=== PATIENT | female | born 1990 | race Caucasian/White ===

== ENCOUNTER 2018-12-17 15:44 | Emergency (ER) | payer OTHER, SELFPAY ==
[2018-12-17 16:06] VITALS: BP 115/73; PULSE 82; RESP 14; TEMP 36.8; O2SAT 97
--- NOTE | 2018-12-17 16:14 | DI.RAD.S_ITS ---
PROCEDURE: XR CHEST 2V INDICATIONS: atypical pneumonia treatment, new pain rt chest / epigastric TECHNIQUE: 2 views of the chest were acquired. COMPARISON: None. FINDINGS: Surgical changes and devices: Cholecystectomy clips are seen. Lungs and pleura: No focal infiltrates are seen. Mild interstitial prominence is seen, particularly involving the perihilar regions. No pneumothorax or pleural effusions are seen. Mediastinum: Mediastinal contours are normal. Heart size is normal. Bones and chest wall: No suspicious bony abnormalities. Soft tissues appear unremarkable. IMPRESSION: Interstitial prominence is seen, which is supportive of the diagnosis of atypical pneumonia. No focal infiltrates are seen. Dictated by: Montrell Myrick M.D. on 12/17/2018 at 15:26 Approved by: Montrell Myrick M.D. on 12/17/2018 at 15:26
[2018-12-17 19:41] VITALS: BP 118/75; PULSE 76; RESP 16; O2SAT 100
--- NOTE | 2018-12-17 20:46 | DI.CT.S_ITS ---
PROCEDURE: CT CHEST W CON INDICATIONS: shortness of breath, non improving pneumoni TECHNIQUE: After the administration of intravenous contrast, 5 mm thick sections acquired from the pulmonary apices to the posterior costophrenic angles. 7 mm thick coronal and sagittal MIP reformats were acquired. For radiation dose reduction, the following was used: automated exposure control, adjustment of mA and/or kV according to patient size. COMPARISON: None. FINDINGS: Image quality: Excellent. Lungs and pleura: No acute air space opacities. No pleural effusions or pneumothorax. Central and peripheral airways are patent and normal in caliber. Mediastinum: Heart size is normal. No pericardial effusion. No mediastinal or hilar adenopathy by size criteria. Thoracic aorta and central pulmonary arteries are normal in size. Esophagus is normal in caliber. No hiatal hernia. Bones and chest wall: No suspicious bony lesions. No vertebral body compression fractures. No axillary or supraclavicular adenopathy by size criteria. Thyroid gland appears normal where well visualized. Abdomen: Visualized upper abdominal solid organs appear normal. Upper abdominal bowel loops are normal in caliber. IMPRESSION: No pneumonia found. Source of shortness of breath is not seen. Note: These findings are concordant with the preliminary interpretation. Dictated by: Jeronimo Walker M.D. on 12/18/2018 at 8:28 Approved by: Jeronimo Walker M.D. on 12/18/2018 at 8:29
[2018-12-17 21:02] VITALS: BP 140/94
[2018-12-17 21:15] VITALS: O2SAT 100
[2018-12-17] MEDS: ALBUTEROL 2.5 MG/3 ML NEB (ADULT) INH (21:15)
[2018-12-17 21:48] LABS: Add Manual Diff / Slide Review NO; Basophils Absolute Auto 100 /uL (0-100); Basophils Percent Auto 0.7 % (0-2); Eosinophils Absolute Auto 100 /uL (0-450); Eosinophils Percent Auto 0.6 % (2-4); Hematocrit 40.7 % (36-46); Hemoglobin 14.2 g/dL (12.0-16.0); Lymphocytes Absolute Auto 5400 /uL (1100-4500); Lymphocytes Percent Auto 32.9 % (25-40); Mean Corpuscular HGB Conc 34.9 % (30-36); Mean Corpuscular Hemoglobin 29.8 PG (26-34); Mean Corpuscular Volume 85.3 fL (80-100); Monocytes Absolute Auto 800 /uL (0-900); Monocytes Percent Auto 5.2 % (3-14); Neutrophils Absolute Auto 10000 /uL (1500-7000); Neutrophils Percent Auto 60.6 % (50-75); Platelet Count 311 X10^3/uL (150-400); Red Blood Cell Count 4.77 X10^6/uL (4.0-5.2); Red Cell Distribution Width 13.8 % (11.6-14.8); White Blood Cell Count 16.4 X10^3/uL (4.5-11.0)
[2018-12-17 21:51] LABS: Bacteria Urine None Seen; RBC Urine None Seen (0-5/HPF)
--- NOTE | 2018-12-17 22:15 | ED.CHESTPAIN ---
HPI - Chest Pain <ROBERT Nguyen-BC - Last Filed: 12/17/18 22:59> General Chief Complaint: Chest Pain Stated Complaint: Chest pain Time Seen by Provider: 12/17/18 19:54 Source: patient Mode of arrival: ambulatory Limitations: no limitations History of Present Illness HPI narrative: The patient is a 28-year-old female former smoker with history of migraines who presents with a chief complaint of lung pain. She states her lungs hurt and feel heavy. 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 She states she has been treated with azithromycin. She is currently being treated with Levaquin. She states that it hurts to take a deep breath and that she has a productive cough. She is concerned that the pneumonia is worse or fungal given her exposure. She is using inhalers and was on a course of prednisone. She has an appointment scheduled with a cheese pancake roller at the end of the month. She denies any fevers nausea vomiting or diarrhea. Patient states she is ?tired of feeling sick. Related Data Home Medications Medication Instructions Recorded Confirmed fluticasone propion-salmeterol 2 puff INHALATION BID PRN 12/17/18 12/17/18 [Advair HFA] levofloxacin 750 mg PO DAILY 12/17/18 12/17/18 sumatriptan [Imitrex] 1 spray INTRANASAL BID PRN 12/17/18 12/17/18 topiramate 50 mg PO BEDTIME 12/17/18 12/17/18 Previous Rx's Medication Instructions Recorded doxycycline hyclate 100 mg PO BID #20 cap 12/17/18 Allergies Allergy/AdvReac Type Severity Reaction Status Date / Time naproxen [From Naprosyn] Allergy Severe Anaphylaxis Verified 12/17/18 16:11 Sulfa (Sulfonamide Allergy Severe Anaphylaxis Verified 12/17/18 16:11 Antibiotics) Penicillins Allergy Intermediate Hives Verified 12/17/18 16:10 Review of Systems <SOPHIE Nguyen - Last Filed: 12/17/18 22:59> Review of Systems GENERAL: Denies chills, fatigue, malaise, fever, sweats. HEENT: Denies sinus pain, ear pain, sore throat, difficulty swallowing, dizziness. RESPIRATORY: See HPI CARDIOVASCULAR: Denies chest pain, palpitations, orthopnea, edema, GASTROINTESTINAL: Denies nausea, vomiting, abdominal pain, diarrhea, constipation, melena. : Denies dysuria, frequency, incontinence, hematuria, urinary retention. MUSCULOSKELETAL: denies weakness, joint pain, or bony pain SKIN: Denies rash, skin lesions, or other NEUROLOGIC: Denies weakness, headache, numbness, change in speech, confusion, seizures, incoordination. PSYCHIATRIC: No concerning psychosocial issues. 12 point review of systems is negative except for those stated above PFSH <SOPHIE Nguyen - Last Filed: 12/17/18 22:59> Social History Smoking Status: Former smoker Social History Smoking Status: Former smoker Exam <SOPHIE Nguyen - Last Filed: 12/17/18 22:59> Narrative Exam Narrative: GENERAL: This is a well-nourished, well-developed patient, in no acute distress HEAD: Atraumatic. Normocephalic. No temporal or scalp tenderness. EYES: Pupils equal round and reactive. Extraocular motions intact. No scleral icterus. No injection or drainage. ENT: Nose without bleeding, purulent drainage or septal hematoma. Throat without erythema, tonsillar hypertrophy or exudate. Uvula midline. Airway patent. NECK: Trachea midline. No JVD or lymphadenopathy. Supple, nontender, no meningeal signs. CARDIOVASCULAR: Regular rate and rhythm without murmurs, gallops, or rubs. RESPIRATORY: Clear to auscultation. Breath sounds equal bilaterally. No wheezes, rales, or rhonchi. Dry cough noted in the emergency department. No accessory muscle use. GASTROINTESTINAL: Abdomen soft, non-tender, nondistended. No hepato-splenomegaly, or palpable masses. No guarding. EXTREMITIES: No clubbing, cyanosis, or edema. No joint tenderness, effusion, or edema noted. BACK: Nontender without deformity or crepitance. No flank tenderness. NEURO: AOx3. SKIN: No rash or erythema. Initial Vital Signs Initial Vital Signs: Vital Signs Temperature 98.2 F 12/17/18 16:06 Pulse Rate 82 12/17/18 16:06 Respiratory Rate 14 12/17/18 16:06 Blood Pressure 115/73 12/17/18 16:06 Pulse Oximetry 97 12/17/18 16:06 <Salvatore Ruiz MD - Last Filed: 12/17/18 23:46> Initial Vital Signs Initial Vital Signs: Vital Signs Temperature 98.2 F 12/17/18 16:06 Pulse Rate 82 12/17/18 16:06 Respiratory Rate 14 12/17/18 16:06 Blood Pressure 115/73 12/17/18 16:06 Pulse Oximetry 97 12/17/18 16:06 Course <ROBERT Nguyen- - Last Filed: 12/17/18 22:59> Orders Ordered: ED Orders 12/17/18 16:14 Chest [XR chest 2V] Stat 12/17/18 20:01 RT Consult Eval and Treat Now 12/17/18 20:46 CT chest w con Stat 12/17/18 21:10 Sputum Culture Stat 12/17/18 21:30 Complete Blood Count AUTO DIFF Stat Comprehensive Metabolic Panel Stat 12/17/18 21:34 Urine Microscopic Stat Discontinued Medications Albuterol (Ventolin) 2.5 mg INH NOW ONE Stop: 12/17/18 21:15 Last Admin: 12/17/18 21:15 Dose: 2.5 mg Doxycycline Hyclate (Vibramycin) 100 mg PO NOW ONE Stop: 12/17/18 22:56 Last Admin: 12/17/18 22:58 Dose: 100 mg Vital Signs - 8 hr 12/17/18 16:06 12/17/18 19:41 12/17/18 21:02 Temperature 98.2 F Pulse Rate 82 76 Respiratory Rate 14 16 Blood Pressure 115/73 Blood Pressure [Left Wrist] 118/75 140/94 H Pulse Oximetry 97 100 12/17/18 21:15 12/17/18 23:01 Temperature Pulse Rate 71 Respiratory Rate 18 Blood Pressure Blood Pressure [Left Wrist] 140/83 Pulse Oximetry 100 99 <Salvatore Ruiz MD - Last Filed: 12/17/18 23:46> Orders Ordered: ED Orders 12/17/18 16:14 Chest [XR chest 2V] Stat 12/17/18 20:01 RT Consult Eval and Treat Now 12/17/18 20:46 CT chest w con Stat 12/17/18 21:10 Sputum Culture Stat 12/17/18 21:30 Complete Blood Count AUTO DIFF Stat Comprehensive Metabolic Panel Stat 12/17/18 21:34 Urine Microscopic Stat Discontinued Medications Albuterol (Ventolin) 2.5 mg INH NOW ONE Stop: 12/17/18 21:15 Last Admin: 12/17/18 21:15 Dose: 2.5 mg Doxycycline Hyclate (Vibramycin) 100 mg PO NOW ONE Stop: 12/17/18 22:56 Last Admin: 12/17/18 22:58 Dose: 100 mg Vital Signs - 8 hr 12/17/18 16:06 12/17/18 19:41 12/17/18 21:02 Temperature 98.2 F Pulse Rate 82 76 Respiratory Rate 14 16 Blood Pressure 115/73 Blood Pressure [Left Wrist] 118/75 140/94 H Pulse Oximetry 97 100 12/17/18 21:15 12/17/18 23:01 Temperature Pulse Rate 71 Respiratory Rate 18 Blood Pressure Blood Pressure [Left Wrist] 140/83 Pulse Oximetry 100 99 MDM - Chest Pain <ROBERT Nguyen- - Last Filed: 12/17/18 22:59> Lab Data Result diagrams: 12/17/18 21:30 12/17/18 21:30 Lab Results 12/17/18 12/17/18 12/17/18 Range/Units 21:30 21:30 21:34 WBC 16.4 H (4.5-11.0) X10^3/uL RBC 4.77 (4.0-5.2) X10^6/uL Hgb 14.2 (12.0-16.0) g/dL Hct 40.7 (36-46) % MCV 85.3 (80-100) fL MCH 29.8 (26-34) PG MCHC 34.9 (30-36) % RDW 13.8 (11.6-14.8) % Plt Count 311 (150-400) X10^3/uL Neut % (Auto) 60.6 (50-75) % Lymph % (Auto) 32.9 (25-40) % [place] % (Auto) 5.2 (3-14) % Eos % (Auto) 0.6 L (2-4) % Baso % (Auto) 0.7 (0-2) % Neut # (Auto) 67703 H (1186-7229) /uL Lymph # (Auto) 5400 H (2154-4725) /uL [place] # (Auto) 800 (0-900) /uL Eos # (Auto) 100 (0-450) /uL Baso # (Auto) 100 (0-100) /uL Sodium 139 (137-145) mmol/L Potassium 3.5 (3.4-5.1) mmol/L Chloride 105 (98-107) mmol/L Carbon Dioxide 22 (22-32) mmol/L BUN 14 (7-17) mg/dL Creatinine 0.80 (0.52-1.04) mg/dL Estimated GFR > 60.0 (>60) mL/min BUN/Creatinine Ratio 17.5 (6-22) Glucose 93 (70-100) mg/dL Calcium 9.4 (8.4-10.2) mg/dL Total Bilirubin 0.9 (0.2-1.3) mg/dL AST 23 (14-36) IU/L ALT 32 (9-52) IU/L Alkaline Phosphatase 79 (38-126) U/L Total Protein 8.0 (6.3-8.2) g/dL Albumin 4.8 (3.5-5.0) g/dL Globulin 3.2 (1.7-4.1) g/dL Albumin/Globulin Ratio 1.5 (1.0-2.8) Urine RBC None seen (0-5/HPF) Urine WBC 5-10/hpf H (0-5/HPF) Ur Squamous Epith Cells 5-10 /hpf H (0-5/HPF) Amorphous Sediment 2+ Urine Bacteria None seen (None) Ur Culture Indicated? Cult not indicated Point of Care Testing Test Results Negative Urine Dip Bedside Urine Glucose Negative Bedside Urine Bilirubin - Negative Bedside Urine Ketone - Negative Urine Specific [place] 1.030 Bedside Urine Occult Blood - Negative Bedside Urine pH 6.0 Bedside Urine Protein - Negative Bedside Urine Urobilinogen - Negative Bedside Urine Nitrite - Negative Bedside Urine Leukocytes ++ 125 Esterase Imaging Data Chest x-ray: Radiologist's impression: [address] [address] XRay Report Signed Patient: Mariann Carcamo [facility]#: [id number] : 1990Acct:[id number] Age/Sex: 28 / FDate of Service: 12/17/18 Loc: ED Accession Number: [id number] Procedure: XR chest 2V Ordering Provider: Carmen Ortiz D.O. PROCEDURE: XR CHEST 2V INDICATIONS: atypical pneumonia treatment, new pain rt chest / epigastric TECHNIQUE: 2 views of the chest were acquired. COMPARISON: None. FINDINGS: Surgical changes and devices: Cholecystectomy clips are seen. Lungs and pleura: No focal infiltrates are seen. Mild interstitial prominence is seen, particularly involving the perihilar regions. No pneumothorax or pleural effusions are seen. Mediastinum: Mediastinal contours are normal. Heart size is normal. Bones and chest wall: No suspicious bony abnormalities. Soft tissues appear unremarkable. IMPRESSION: Interstitial prominence is seen, which is supportive of the diagnosis of atypical pneumonia. No focal infiltrates are seen. Dictated by: Montrell Myrick M.D. on 12/17/2018 at 15:26 Approved by: Montrell Myrick M.D. on 12/17/2018 at 15:26 [facility] Narrative Medical decision making narrative: The patient is a 28-year-old female with history of recent pneumonia, having been treated with azithromycin and Levaquin. She presents with a chief complaint of worsening lung pain, and lack of improvement. She has been using albuterol as well as steroids at home. Her x-ray shows a possible atypical pneumonia. Thus given her exposure to a fungus or substance at work, I obtained a sputum culture as well as a chest CT. She was evaluated by respiratory therapist in the emergency department. She was signed out to Dr Ruiz at 23:[address] pending. <Salvatore Ruiz MD - Last Filed: 12/17/18 23:46> Lab Data Lab Results 12/17/18 12/17/18 12/17/18 Range/Units 21:30 21:30 21:34 WBC 16.4 H (4.5-11.0) X10^3/uL RBC 4.77 (4.0-5.2) X10^6/uL Hgb 14.2 (12.0-16.0) g/dL Hct 40.7 (36-46) % MCV 85.3 (80-100) fL MCH 29.8 (26-34) PG MCHC 34.9 (30-36) % RDW 13.8 (11.6-14.8) % Plt Count 311 (150-400) X10^3/uL Neut % (Auto) 60.6 (50-75) % Lymph % (Auto) 32.9 (25-40) % [place] % (Auto) 5.2 (3-14) % Eos % (Auto) 0.6 L (2-4) % Baso % (Auto) 0.7 (0-2) % Neut # (Auto) 73283 H (5174-2909) /uL Lymph # (Auto) 5400 H (6438-5672) /uL [place] # (Auto) 800 (0-900) /uL Eos # (Auto) 100 (0-450) /uL Baso # (Auto) 100 (0-100) /uL Sodium 139 (137-145) mmol/L Potassium 3.5 (3.4-5.1) mmol/L Chloride 105 (98-107) mmol/L Carbon Dioxide 22 (22-32) mmol/L BUN 14 (7-17) mg/dL Creatinine 0.80 (0.52-1.04) mg/dL Estimated GFR > 60.0 (>60) mL/min BUN/Creatinine Ratio 17.5 (6-22) Glucose 93 (70-100) mg/dL Calcium 9.4 (8.4-10.2) mg/dL Total Bilirubin 0.9 (0.2-1.3) mg/dL AST 23 (14-36) IU/L ALT 32 (9-52) IU/L Alkaline Phosphatase 79 (38-126) U/L Total Protein 8.0 (6.3-8.2) g/dL Albumin 4.8 (3.5-5.0) g/dL Globulin 3.2 (1.7-4.1) g/dL Albumin/Globulin Ratio 1.5 (1.0-2.8) Urine RBC None seen (0-5/HPF) Urine WBC 5-10/hpf H (0-5/HPF) Ur Squamous Epith Cells 5-10 /hpf H (0-5/HPF) Amorphous Sediment 2+ Urine Bacteria None seen (None) Ur Culture Indicated? Cult not indicated Point of Care Testing Test Results Negative Urine Dip Bedside Urine Glucose Negative Bedside Urine Bilirubin - Negative Bedside Urine Ketone - Negative Urine Specific [place] 1.030 Bedside Urine Occult Blood - Negative Bedside Urine pH 6.0 Bedside Urine Protein - Negative Bedside Urine Urobilinogen - Negative Bedside Urine Nitrite - Negative Bedside Urine Leukocytes ++ 125 Esterase Discharge Plan Departure Patient Disposition: Home Clinical Impression: Atypical pneumonia Instructions: DI for Atypical Pneumonia Activity Restrictions/Additional Instructions: The results of your sputum culture should be ready in 48-72 hours. This will establish what is in your lungs. In the meantime I will put him on doxycycline as this is more effective for atypical pneumonias. It can take 2-3 days to kick in. Please follow up with primary care provider for re-evaluation in a few days. Please follow up with pulmonology as discussed and previously arranged. Please come back to emergency department for any acute concerns such as shortness of breath or chest pain. Prescriptions: New doxycycline hyclate 100 mg capsule 100 mg PO BID Qty: 20 RF: 0 No Action topiramate 25 mg tablet 50 mg PO BEDTIME RF: 0 levofloxacin 750 mg tablet 750 mg PO DAILY RF: 0 sumatriptan [Imitrex] 20 mg/actuation spray,non-aerosol 1 spray Intranasal BID PRN (Reason: Migraine Headache) RF: 0 Advair HFA 45-21 mcg/actuation HFA aerosol inhaler 2 puff Inhalation BID PRN (Reason: Shortness Of Breath) RF: 0 Referrals: [facility] [Provider Group] <Salvatore Ruiz MD - Last Filed: 12/17/18 23:46> Cosign ED Attending Cosignature Attestation: The Nurse Practitioner who is caring for her and I had several discussions about her care and workup. I interviewed and examined the patient myself. I agree with the history. On my exam for heart is normal. Lungs are clear to auscultation all [place]. She has no peripheral edema,and a negative [place] test. She has no history of PE or DVT. She is having dyspnea, but no fever or chills. she is treated again as atypical pneumonia. Chest x-ray suggested atypical pneumonia. Noncontrast chest CT is normal. I have informed the patient of the normal chest CT. She has a cheese pancake roller appointment pending. I recommend she take the antibiotic as prescribed, and follow up with the cheese pancake roller as scheduled. I agree with the evaluation, assessment AND treatment plan as documented by IGLESIA Sarmiento.
--- NOTE | 2018-12-17 22:18 | ED_ITS ---
HPI - Chest Pain <ROBERT Nguyen-BC - Last Filed: 12/17/18 22:59> General Chief Complaint: Chest Pain Stated Complaint: Chest pain Time Seen by Provider: 12/17/18 19:54 Source: patient Mode of arrival: ambulatory Limitations: no limitations History of Present Illness HPI narrative: The patient is a 28-year-old female former smoker with history of migraines who presents with a chief complaint of lung pain. She states her lungs hurt and feel heavy. 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 She states she has been treated with azithromycin. She is currently being treated with Levaquin. She states that it hurts to take a deep breath and that she has a productive cough. She is concerned that the pneumonia is worse or fungal given her exposure. She is using inhalers and was on a course of prednisone. She has an appointment scheduled with a vice president supply chain at the end of the month. She denies any fevers nausea vomiting or diarrhea. Patient states she is ?tired of feeling sick. Related Data Home Medications Medication Instructions Recorded Confirmed fluticasone propion-salmeterol 2 puff INHALATION BID PRN 12/17/18 12/17/18 [Advair HFA] levofloxacin 750 mg PO DAILY 12/17/18 12/17/18 sumatriptan [Imitrex] 1 spray INTRANASAL BID PRN 12/17/18 12/17/18 topiramate 50 mg PO BEDTIME 12/17/18 12/17/18 Previous Rx's Medication Instructions Recorded doxycycline hyclate 100 mg PO BID #20 cap 12/17/18 Allergies Allergy/AdvReac Type Severity Reaction Status Date / Time naproxen [From Naprosyn] Allergy Severe Anaphylaxis Verified 12/17/18 16:11 Sulfa (Sulfonamide Allergy Severe Anaphylaxis Verified 12/17/18 16:11 Antibiotics) Penicillins Allergy Intermediate Hives Verified 12/17/18 16:10 Review of Systems <SOPHIE Nguyen - Last Filed: 12/17/18 22:59> Review of Systems GENERAL: Denies chills, fatigue, malaise, fever, sweats. HEENT: Denies sinus pain, ear pain, sore throat, difficulty swallowing, dizziness. RESPIRATORY: See HPI CARDIOVASCULAR: Denies chest pain, palpitations, orthopnea, edema, GASTROINTESTINAL: Denies nausea, vomiting, abdominal pain, diarrhea, constipation, melena. : Denies dysuria, frequency, incontinence, hematuria, urinary retention. MUSCULOSKELETAL: denies weakness, joint pain, or bony pain SKIN: Denies rash, skin lesions, or other NEUROLOGIC: Denies weakness, headache, numbness, change in speech, confusion, seizures, incoordination. PSYCHIATRIC: No concerning psychosocial issues. 12 point review of systems is negative except for those stated above PFSH <SOPHIE Nguyen - Last Filed: 12/17/18 22:59> Social History Smoking Status: Former smoker Social History Smoking Status: Former smoker Exam <SOPHIE Nguyen - Last Filed: 12/17/18 22:59> Narrative Exam Narrative: GENERAL: This is a well-nourished, well-developed patient, in no acute distress HEAD: Atraumatic. Normocephalic. No temporal or scalp tenderness. EYES: Pupils equal round and reactive. Extraocular motions intact. No scleral icterus. No injection or drainage. ENT: Nose without bleeding, purulent drainage or septal hematoma. Throat without erythema, tonsillar hypertrophy or exudate. Uvula midline. Airway patent. NECK: Trachea midline. No JVD or lymphadenopathy. Supple, nontender, no meningeal signs. CARDIOVASCULAR: Regular rate and rhythm without murmurs, gallops, or rubs. RESPIRATORY: Clear to auscultation. Breath sounds equal bilaterally. No wheezes, rales, or rhonchi. Dry cough noted in the emergency department. No accessory m uscle use. GASTROINTESTINAL: Abdomen soft, non-tender, nondistended. No hepato- splenomegaly, or palpable masses. No guarding. EXTREMITIES: No clubbing, cyanosis, or edema. No joint tenderness, effusion, or edema noted. BACK: Nontender without deformity or crepitance. No flank tenderness. NEURO: AOx3. SKIN: No rash or erythema. Initial Vital Signs Initial Vital Signs: Vital Signs Temperature 98.2 F 12/17/18 16:06 Pulse Rate 82 04/15/19 16:06 Respiratory Rate 14 12/17/18 16:06 Blood Pressure 115/73 12/17/18 16:06 Pulse Oximetry 97 12/17/18 16:06 <Salvatore Ruiz MD - Last Filed: 12/17/18 23:46> Initial Vital Signs Initial Vital Signs: Vital Signs Temperature 98.2 F 12/17/18 16:06 Pulse Rate 82 12/17/18 16:06 Respiratory Rate 14 12/17/18 16:06 Blood Pressure 115/73 12/17/18 16:06 Pulse Oximetry 97 12/17/18 16:06 Course <ROBERT Nguyen- - Last Filed: 12/17/18 22:59> Orders Ordered: ED Orders 12/17/18 16:14 Chest [XR chest 2V] Stat 12/17/18 20:01 RT Consult Eval and Treat Now 12/17/18 20:46 CT chest w con Stat 12/17/18 21:10 Sputum Culture Stat 12/17/18 21:30 Complete Blood Count AUTO DIFF Stat Comprehensive Metabolic Panel Stat 12/17/18 21:34 Urine Microscopic Stat Discontinued Medications Albuterol (Ventolin) 2.5 mg INH NOW ONE Stop: 12/17/18 21:15 Last Admin: 12/17/18 21:15 Dose: 2.5 mg Doxycycline Hyclate (Vibramycin) 100 mg PO NOW ONE Stop: 12/17/18 22:56 Last Admin: 12/17/18 22:58 Dose: 100 mg Vital Signs - 8 hr 12/17/18 16:06 12/17/18 19:41 12/17/18 21:02 Temperature 98.2 F Pulse Rate 82 76 Respiratory Rate 14 16 Blood Pressure 115/73 Blood Pressure [Left Wrist] 118/75 140/94 H Pulse Oximetry 97 100 12/17/18 21:15 12/17/18 23:01 Temperature Pulse Rate 71 Respiratory Rate 18 Blood Pressure Blood Pressure [Left Wrist] 140/83 Pulse Oximetry 100 99 <Salvatore Ruiz MD - Last Filed: 12/17/18 23:46> Orders Ordered: ED Orders 12/17/18 16:14 Chest [XR chest 2V] Stat 12/17/18 20:01 RT Consult Eval and Treat Now 12/17/18 20:46 CT chest w con Stat 12/17/18 21:10 Sputum Culture Stat 12/17/18 21:30 Complete Blood Count AUTO DIFF Stat Comprehensive Metabolic Panel Stat 12/17/18 21:34 Urine Microscopic Stat Discontinued Medications Albuterol (Ventolin) 2.5 mg INH NOW ONE Stop: 12/17/18 21:15 Last Admin: 12/17/18 21:15 Dose: 2.5 mg Doxycycline Hyclate (Vibramycin) 100 mg PO NOW ONE Stop: 12/17/18 22:56 Last Admin: 12/17/18 22:58 Dose: 100 mg Vital Signs - 8 hr 12/17/18 16:06 12/17/18 19:41 12/17/18 21:02 Temperature 98.2 F Pulse Rate 82 76 Respiratory Rate 14 16 Blood Pressure 115/73 Blood Pressure [Left Wrist] 118/75 140/94 H Pulse Oximetry 97 100 12/17/18 21:15 12/17/18 23:01 Temperature Pulse Rate 71 Respiratory Rate 18 Blood Pressure Blood Pressure [Left Wrist] 140/83 Pulse Oximetry 100 99 MDM - Chest Pain <ROBERT Nguyen- - Last Filed: 12/17/18 22:59> Lab Data Result diagrams: 12/17/18 21:30 12/17/18 21:30 Lab Results 12/17/18 12/17/18 12/17/18 Range/Units 21:30 21:30 21:34 WBC 16.4 H (4.5-11.0) X10^3/uL RBC 4.77 (4.0-5.2) X10^6/uL Hgb 14.2 (12.0-16.0) g/dL Hct 40.7 (36-46) % MCV 85.3 (80-100) fL MCH 29.8 (26-34) PG MCHC 34.9 (30-36) % RDW 13.8 (11.6-14.8) % Plt Count 311 (150-400) X10^3/uL Neut % (Auto) 60.6 (50-75) % Lymph % (Auto) 32.9 (25-40) % [place]chran % (Auto) 5.2 (3-14) % Eos % (Auto) 0.6 L (2-4) % Baso % (Auto) 0.7 (0-2) % Neut # (Auto) 88492 H (0012-9411) /uL Lymph # (Auto) 5400 H (5975-0105) /uL [place]chran # (Auto) 800 (0-900) /uL Eos # (Auto) 100 (0-450) /uL Baso # (Auto) 100 (0-100) /uL Sodium 139 (137-145) mmol/L Potassium 3.5 (3.4-5.1) mmol/L Chloride 105 (98-107) mmol/L Carbon Dioxide 22 (22-32) mmol/L BUN 14 (7-17) mg/dL Creatinine 0.80 (0.52-1.04) mg/dL Estimated GFR > 60.0 (>60) mL/min BUN/Creatinine Ratio 17.5 (6-22) Glucose 93 (70-100) mg/dL Calcium 9.4 (8.4-10.2) mg/dL Total Bilirubin 0.9 (0.2-1.3) mg/dL AST 23 (14-36) IU/L ALT 32 (9-52) IU/L Alkaline Phosphatase 79 (38-126) U/L Total Protein 8.0 (6.3-8.2) g/dL Albumin 4.8 (3.5-5.0) g/dL Globulin 3.2 (1.7-4.1) g/dL Albumin/Globulin Ratio 1.5 (1.0-2.8) Urine RBC None seen (0-5/HPF) Urine WBC 5-10/hpf H (0-5/HPF) Ur Squamous Epith Cells 5-10 /hpf H (0-5/HPF) Amorphous Sediment 2+ Urine Bacteria None seen (None) Ur Culture Indicated? Cult not indicated Point of Care Testing Test Results Negative Urine Dip Bedside Urine Glucose Negative Bedside Urine Bilirubin - Negative Bedside Urine Ketone - Negative Urine Specific [place] 1.030 Bedside Urine Occult Blood - Negative Bedside Urine pH 6.0 Bedside Urine Protein - Negative Bedside Urine Urobilinogen - Negative Bedside Urine Nitrite - Negative Bedside Urine Leukocytes ++ 125 Esterase Imaging Data Chest x-ray: Radiologist's impression: [address] [address] XRay Report Signed Patient: Mariann Carcamo [facility]#: [id number] : 1990Acct:[id number] Age/Sex: 28 / FDate of Service: 12/17/18 Loc: ED Accession Number: [id number] Procedure: XR chest 2V Ordering Provider: Carmen Ortiz D.O. PROCEDURE: XR CHEST 2V INDICATIONS: atypical pneumonia treatment, new pain rt chest / epigastric TECHNIQUE: 2 views of the chest were acquired. COMPARISON: None. FINDINGS: Surgical changes and devices: Cholecystectomy clips are seen. Lungs and pleura: No focal infiltrates are seen. Mild interstitial prominence is seen, particularly involving the perihilar regions. No pneumothorax or pleural effusions are seen. Mediastinum: Mediastinal contours are normal. Heart size is normal. Bones and chest wall: No suspicious bony abnormalities. Soft tissues appear unremarkable. IMPRESSION: Interstitial prominence is seen, which is supportive of the diagnosis of atypical pneumonia. No focal infiltrates are seen. Dictated by: Montrell Myrick M.D. on 12/17/2018 at 15:26 Approved by: Montrell Myrick M.D. on 12/17/2018 at 15:26 [facility] Narrative Medical decision making narrative: The patient is a 28-year-old female with history of recent pneumonia, having been treated with azithromycin and Levaquin. She presents with a chief complaint of worsening lung pain, and lack of impro vement. She has been using albuterol as well as steroids at home. Her x-ray shows a possible atypical pneumonia. Thus given her exposure to a fungus or substance at work, I obtained a sputum culture as well as a chest CT. She was evaluated by respiratory therapist in the emergency department. She was signed out to Dr Ruiz at 23:[address] pending. <Salvatore Ruiz MD - Last Filed: 12/17/18 23:46> Lab Data Lab Results 12/17/18 12/17/18 12/17/18 Range/Units 21:30 21:30 21:34 WBC 16.4 H (4.5-11.0) X10^3/uL RBC 4.77 (4.0-5.2) X10^6/uL Hgb 14.2 (12.0-16.0) g/dL Hct 40.7 (36-46) % MCV 85.3 (80-100) fL MCH 29.8 (26-34) PG MCHC 34.9 (30-36) % RDW 13.8 (11.6-14.8) % Plt Count 311 (150-400) X10^3/uL Neut % (Auto) 60.6 (50-75) % Lymph % (Auto) 32.9 (25-40) % Cochran % (Auto) 5.2 (3-14) % Eos % (Auto) 0.6 L (2-4) % Baso % (Auto) 0.7 (0-2) % Neut # (Auto) 84578 H (6592-3350) /uL Lymph # (Auto) 5400 H (7772-1505) /uL [place]ran # (Auto) 800 (0-900) /uL Eos # (Auto) 100 (0-450) /uL Baso # (Auto) 100 (0-100) /uL Sodium 139 (137-145) mmol/L Potassium 3.5 (3.4-5.1) mmol/L Chloride 105 (98-107) mmol/L Carbon Dioxide 22 (22-32) mmol/L BUN 14 (7-17) mg/dL Creatinine 0.80 (0.52-1.04) mg/dL Estimated GFR > 60.0 (>60) mL/min BUN/Creatinine Ratio 17.5 (6-22) Glucose 93 (70-100) mg/dL Calcium 9.4 (8.4-10.2) mg/dL Total Bilirubin 0.9 (0.2-1.3) mg/dL AST 23 (14-36) IU/L ALT 32 (9-52) IU/L Alkaline Phosphatase 79 (38-126) U/L Total Protein 8.0 (6.3-8.2) g/dL Albumin 4.8 (3.5-5.0) g/dL Globulin 3.2 (1.7-4.1) g/dL Albumin/Globulin Ratio 1.5 (1.0-2.8) Urine RBC None seen (0-5/HPF) Urine WBC 5-10/hpf H (0-5/HPF) Ur Squamous Epith Cells 5-10 /hpf H (0-5/HPF) Amorphous Sediment 2+ Urine Bacteria None seen (None) Ur Culture Indicated? Cult not indicated Point of Care Testing Test Results Negative Urine Dip Bedside Urine Glucose Negative Bedside Urine Bilirubin - Negative Bedside Urine Ketone - Negative Urine Specific [place] 1.030 Bedside Urine Occult Blood - Negative Bedside Urine pH 6.0 Bedside Urine Protein - Negative Bedside Urine Urobilinogen - Negative Bedside Urine Nitrite - Negative Bedside Urine Leukocytes ++ 125 Esterase Discharge Plan Departure Patient Disposition: Home Clinical Impression: Atypical pneumonia Instructions: DI for Atypical Pneumonia Activity Restrictions/Additional Instructions: The results of your sputum culture should be ready in 48-72 hours. This will establish what is in your lungs. In the meantime I will put him on doxycycline as this is more effective for atypical pneumonias. It can take 2-3 days to kick in. Please follow up with primary care provider for re-evaluation in a few days. Please follow up with pulmonology as discussed and previously arranged. Please come back to emergency department for any acute concerns such as shortness of breath or chest pain. Prescriptions: New doxycycline hyclate 100 mg capsule 100 mg PO BID Qty: 20 RF: 0 No Action topiramate 25 mg tablet 50 mg PO BEDTIME RF: 0 levofloxacin 750 mg tablet 750 mg PO DAILY RF: 0 sumatriptan [Imitrex] 20 mg/actuation spray,non-aerosol 1 spray Intranasal BID PRN (Reason: Migraine Headache) RF: 0 Advair HFA 45-21 mcg/actuation HFA aerosol inhaler 2 puff Inhalation BID PRN (Reason: Shortness Of Breath) RF: 0 Referrals: [facility] [Provider Group] <Salvatore Ruiz MD - Last Filed: 12/17/18 23:46> Cosign ED Attending Cosignature Attestation: The Nurse Practitioner who is caring for her and I had several discussions about her care and workup. I interviewed and examined the patient myself. I agree with the history. On my exam for heart is normal. Lungs are clear to auscultation all duque. She has no peripheral edema,and a negative [place] test. She has no history of PE or DVT. She is having dyspnea, but no fever or chills. she is treated again as atypical pneumonia. Chest x-ray suggested atypical pneumonia. Noncontrast chest CT is normal. I have informed the patient of the normal chest CT. She has a pulmo nologist appointment pending. I recommend she take the antibiotic as prescribed, and follow up with the vice president supply chain as scheduled. I agree with the evaluation, assessment AND treatment plan as documented by IGLESIA Sarmiento.
[2018-12-17 22:21] LABS: Amorphous Sediment Urine 2+; Culture Indicated Urine Cult Not Indicated; Squamous Epithelial Cell Urine 5-10 /HPF (0-5/HPF); WBC Urine 5-10/HPF (0-5/HPF)
[2018-12-17 22:27] LABS: Alanine Aminotransferase 32 IU/L (9-52); Albumin 4.8 g/dL (3.5-5.0); Albumin Globulin Ratio 1.5 (1.0-2.8); Alkaline Phosphatase 79 U/L (38-126); Aspartate Aminotransferase 23 IU/L (14-36); BUN Creatinine Ratio 17.5 (6-22); Bilirubin Total 0.9 mg/dL (0.2-1.3); Blood Urea Nitrogen 14 mg/dL (7-17); Calcium 9.4 mg/dL (8.4-10.2); Carbon Dioxide 22 mmol/L (22-32); Chloride 105 mmol/L (98-107); Estimated Glomerular Filt Rate > 60.0 mL/min (>60); Globulin 3.2 g/dL (1.7-4.1); Glucose 93 mg/dL (70-100); HEMOLYSIS 18 (0-50); Potassium 3.5 mmol/L (3.4-5.1); Sodium 139 mmol/L (137-145)
[2018-12-17] MEDS: DOXYCYCLINE HYCLATE 100 MG TABLET PO (22:58)
[2018-12-17 23:01] VITALS: BP 140/83; PULSE 71; RESP 18; O2SAT 99
== END 2018-12-17 23:50 | disposition home or self-care (01) ==
PROVIDERS: Emergency Provider Nurse Practitioner Family
DX: J18.9 Pneumonia, unspecified organism (principal); Y99.0 Civilian activity done for income or pay
CPT/HCPCS: 36591; 71046; 71260; 80053; 81003; 81015; 81025; 85025; 87070; 87205; 94640; 99283; 99284; J7613